=== PATIENT | female | born 1965 | race Caucasian/White ===

== ENCOUNTER 2016-10-05 06:30 | Day surgery (SDC) | payer OTHER ==
[2016-10-05] MEDS ORDERED: LIDOCAINE 1% 30 ML SDV IF ONE (07:00)
--- NOTE | 2016-10-06 03:37 | CPIP ---
DATE OF PROCEDURE: 10/05/2016 INDICATION FOR PROCEDURE: Sustained palpitations concerning for underlying supraventricular tachyca rdia, undetected to date on previous Holter monitor and ZIO patch monitor. PROCEDURE: Medtronic implantable loop recorder. After informed consent was obtained, the patient was brought to the cardiovascular procedure room. The procedure site was marked at the 4th intercostal space approximately 2 cm from midline. The pat ient was prepped and draped in a sterile fashion. Using 1% lidocaine, a track was anesthetized. On ce appropriate level of anesthesia was obtained locally, scalpel blade was used to make incision in the skin that came with the Medtronic kit. A 15 blade scalpel was used to modify this incision slig htly. Track was made using dilating tool. The device was implanted with the implantation device. Device was placed at least 1 cm beyond the incision site. The patient tolerated the procedure well. Hemostasis was achieved. Steri-Strips were applied. Dressing was in place. DEVICE IMPLANTED: Medtronic Reveal LINQ, serial number [id number]. CONCLUSION: 1. The patient was discharged home without complication. 2. Patient has been given postoperative instructions. 3. The patient has been given instructions on home device monitoring. 4. The patient will follow up next week for wound check and device check. /[id number]/MODL
== END 2016-10-05 09:00 | disposition home or self-care (01) ==
LOC: FCATH 06:30
PROVIDERS: ATTEND Internal Medicine Cardiovascular Disease
PROC: 0JH Subcutaneous Tissue and Fascia, Insertion (ICD-10-PCS; principal; 2016-10-05)
DX: R00.2 Palpitations (principal); I10 Essential (primary) hypertension; G47.33 Obstructive sleep apnea (adult) (pediatric); Z87.891 Personal history of nicotine dependence
CPT/HCPCS: C1764

== ENCOUNTER → 2017-01-06 | Outpatient (CLI) | payer OTHER | LOC: SBRMNEURO 20:00 | PROVIDERS: ATTEND Internal Medicine Pulmonary Disease | DX: G47.33 Obstructive sleep apnea (adult) (pediatric) (principal) ==

== ENCOUNTER 2018-01-12 07:59 | Day surgery (SDC) | payer OTHER ==
[2018-01-12] MEDS ORDERED: LIDOCAINE 1% 300 MG/30 ML SDV SC ONE (08:02)
[2018-01-12] MEDS ORDERED: MIDAZOLAM 2 MG/2 ML VIAL ONE (09:20)
[2018-01-12] MEDS ORDERED: BUPIVACAINE 0.5% 30 ML SDV ONE (09:20)
[2018-01-12] MEDS ORDERED: LIDOCAINE 1% 300 MG/30 ML SDV ONE (09:20)
[2018-01-12] MEDS ORDERED: fentaNYL 100 MCG/2 ML INJ ONE (09:20)
--- NOTE | 2018-01-12 09:32 | PDGENHP ---
History & Physical Chief Complaint: Palpitations History of Present Illness: Carolyn is a pleasant 52 year old female with pmh of palpitations, HTN and IAIN who has had a Medtronic Loop in place. No events detected on Loop to date. She is requesting Loop removal. Pertinent Past, Social, Family History: PMH: HTN, IAIN, Palpitations Relevant Physical Exam: Awake, Alert, appropriate. NAD Cardiorespiratory Assessment: RRR
--- NOTE | 2018-01-12 09:34 | PDPROPOC ---
Sedation Plan of Care Sedation Plan of Care: vital signs stable, mental status noted, patient educated of risks, benefits, alternatives, patient can tolerate sedation ASA Classification: ASA 2 Planned drugs: fentanyl, midazolam Mallampati Score: Class 2 Mallampati Reference Image: Patient passed 3-3-2 rule?: Yes
--- NOTE | 2018-01-12 11:04 | CPIP ---
[f rep st] INVASIVE CARDIAC PROCEDURE DATE OF PROCEDURE: 01/12/2018 PROCEDURE PERFORMED: Medtronic implantable loop recorder removal. INDICATION: Initial indication for loop was palpitations. Patient has requested for loop removal. DESCRIPTION OF PROCEDURE: After informed consent was obtained for loop removal, as well as sedation, patient was brought to the electrophysiology lab. She received a total of 2 mg of Versed and 75 mcg of fentanyl prior to the start of the procedure. She received local anesthesia with 1% lidocaine. Once appropriate level of sedation was achieved, incision was made with scalpel blade, as well as fol lowed by Bovie tool. Dissection was made down to the device and was removed without incident. Hemos tasis was achieved. Steri-Strips were applied. Patient tolerated the procedure well. There were no complications. PLAN: 1. The patient was brought to the [facility] for recovery. 2. Patient will be discharged home. 3. She has a ride home from a friend who will be with her for the day. /[id number]/MODL
== END 2018-01-12 17:19 | disposition home or self-care (01) ==
LOC: FCATH 07:59
PROVIDERS: ATTEND Internal Medicine Cardiovascular Disease
PROC: 0JPT02Z Removal of Monitoring Device from Trunk Subcutaneous Tissue and Fascia, Open Approach (ICD-10-PCS; principal; 2018-01-12)
DX: Z45.09 Encounter for adjustment and management of other cardiac device (principal); I10 Essential (primary) hypertension; G47.33 Obstructive sleep apnea (adult) (pediatric)
CPT/HCPCS: J2250; J3010